=== PATIENT | male | born 1975 | race Hispanic/Latino ===

== ENCOUNTER 2024-01-11 14:07 | Day surgery (SDC) | payer SELFPAY ==
[2024-01-11 14:49] VITALS: BMI 22.3
[2024-01-11 14:51] VITALS: BMI 22.3
[2024-01-11 14:52] VITALS: BP 108/66
[2024-01-11 17:40] VITALS: BP 118/73
[2024-01-11 17:45] VITALS: BP 111/68
[2024-01-11 18:00] VITALS: BP 110/75
[2024-01-11 18:15] VITALS: BP 122/78
[2024-01-11 18:30] VITALS: BP 122/66
== END 2024-01-11 18:44 | disposition home or self-care (01) ==
LOC: SDS 14:07
PROVIDERS: ATTENDING PHYSICIAN Internal Medicine Gastroenterology
DX: R93.2 Abnormal findings on diagnostic imaging of liver and biliary tract (principal); K80.50 Calculus of bile duct without cholangitis or cholecystitis without obstruction
CPT/HCPCS: 43262; 43264; 74330; 76000; C1769